=== PATIENT | male | born 1960 | race African-American/Black ===

== ENCOUNTER 2017-08-04 06:28 | Emergency (ER) | payer OTHER ==
[2017-08-04 06:36] VITALS: BP 105/67; BMI 17.8
--- NOTE | 2017-08-04 06:53 | DR.GENAD ---
HPI - PCP Primary Care Physician: NFNadeem - HPI Comment HPI Comment: PATIENT HAVE SURGERY ON BOTH KNEES WITH SCREWS PLACE. LEFT HIP PROGRESSIVELY HURTING. WORSE THIS AM. NO TRAUMA. - Complaint/Symptoms Chief Complaint Doctors Comments: LEFT HIP PAIN. Chief Complaint:: PT C/O LT HIP PAIN. PT STATES HE HAS HAD SURGERY ON THIS HIP IN THE PAST. PT STATES HE HAS BEEN HAVING PAIN FOR A WHILE BUT THIS AM HE CAN BARELY WALK. - Nurses notes reviewed Nurses Notes Review: Yes - Source History Provided: Patient - Mode of Arrival Mode of Arrival: Ambulatory - Timing Onset of Chief Complaint: 08/04/17 Came on: Gradually - Duration Duration: Constant Duration: Days - Severity Severity: Moderate PMH - PMH Past Medical History: Yes Past Medical History: Hypertension Past Medical History Comment: EMPHYSEMA Past Surgical History: Yes Surgical History: Ortho Surgery - Family History History of Family Medical Conditions: Yes Family Medical History: Diabetes Mellitus - Social History Does patient currently use any type of tobacco product: No Have you used tobacco products in the last 12 months: No Type of Tobacco Use: None Does any household member use tobacco: No Alcohol Use: Occasionally Do you use any recreational Drugs:: No Lives With: Family Lives Where: Home - infectious screening In the last 2 months have you had wt loss of >10#?: NO Have you had fever, night sweats or hemotysis?: No Have you traveled outside the country in the last 6 months?: No Isolation: Standard ROS - Review of Systems Constitutional: No Symptoms Reported Eyes: No Symptoms Reported ENTM: No Symptoms Reported Respiratoy: No Symptoms Reported Cardiovascular: No Symptoms Reported Gastrointestinal/Abdominal: No Symptoms Reported Genitourinary: No Symptoms Reported Neurological: No Symptoms Reported Musculoskeletal: Left, Hip Integumentary: No Symptoms Reported Hematologic/Lymphatic: No Symptoms Reported Endocrine: No Symptoms Reported PE - Vital Signs Vitals: Temperature 97.9 F Pulse Rate 89 Respiratory Rate 20 Blood Pressure [Left Arm] 116/68 Blood Pressure [Right Arm] 114/71 Blood Pressure 105/67 O2 Sat by Pulse Oximetry 98 - General Limitations: No Limitations General Appearance: Alert - Head Head Exam: Normal Inspection - Eyes Eye exam: Normal Appearance - ENT ENT Exam: Normal External Ear Exam External Ear Exam: Normal External Inspection TM/Canal Exam: Bilateral Normal Nose Exam: Normal Nose Exam Mouth Exam: Normal Inspection Throat Exam: Normal Inspection - Neck Neck Exam: Normal Inspection - Chest Chest Inspection: Symmetric Chest Wall Rise - Respiratory Respiratory Exam: Normal Lung Sounds Bilat Respiratory Exam: Bilateral Clear to Auscultation - Cardiovascular Cardiovascular Exam: Regular Rate, Normal Rhythm, Normal Heart Sounds - Abdominal Exam Abdominal Exam: Normal Bowel Sounds, Soft. negative: Tenderness - Extremities Extremities Exam: Tenderness (LT HIP TENDER. YINKA) - Back Back Exam: Normal Inspection - Neurologic Neurological Exam: Alert, Oriented X3 - Psychiatric Psychiatric Exam: Normal Affect, Normal Mood - Skin Skin Exam: Normal Color MDM - Differential Diagnosis Differential Diagnosis: LEFT HIP SPRAIN, STRAIN, FRACTURE, PROTHESIS MALFUNCTION Course - Treatment Treatment: SEE ORDERS. IM MEDS IN ED. PAIN IMPROVING. - Education/Counseling Education/Counseling: Patient, Education Educated On: Treatment, Diagnosis, Needs for Follow Up ROR - XRAY XRAY Interpreted by: Radiologist XRAY Findings: REPORT DISCUSS WITH PATIENT - Diagnosis Discharge Problem: Left hip pain, Avascular necrosis of bone of left hip, Degenerative arthritis of hip - Discharge Plan Condition: Stable Prescriptions: Cyclobenzaprine HCl [FLEXERIL 10 MG *] 10 mg PO TID PRN #20 tab PRN Reason: Ibuprofen [MOTRIN TAB 800 MG *] 800 mg PO Q8H PRN #20 tab PRN Reason: Pain/Inflammation Tramadol HCl 50 mg PO Q8H #15 tablet - Follow ups/Referrals Follow ups/Referrals: NFD,None [Primary Care Provider] - 3 days - Instructions Instructions: Osteoarthritis, Avascular Necrosis, Joint Pain, [id number] Additional Instructions: RETURN TO ED IF WORSE.
[2017-08-04] MEDS ORDERED: TORADOL 60 MG VIAL ONE (07:03)
[2017-08-04] MEDS ORDERED: NORFLEX INJ IM ONE (07:03)
[2017-08-04] MEDS ORDERED: TORADOL 60 MG VIAL IM ONE (07:03)
[2017-08-04] MEDS ORDERED: NORFLEX INJ ONE (07:04)
--- NOTE | 2017-08-04 07:29 | RAD ---
HISTORY: Left hip pain Study: Single view of the pelvis and 1 views of the left hip. Comparison: 10/03/2016 Findings: A single frontal view of the pelvis demonstrates the pelvic ring to be intact. No acute fractures or dislocations. Sacroiliac joints are normal appearance. The femoral heads appear well seated in the a cetabulum. No significant change in appearance of the bilateral ORIF of hip fractures. Severe joint s pace loss involving the left hip with progressive subchondral sclerosis. Possible early femoral head collapse. Impression: 1. Osteoarthritis and possible early AVN of the left hip. 2. Bilateral postsurgical findings. Reported By:
== END 2017-08-04 07:55 | disposition home or self-care (01) ==
LOC: ER 06:28
DX: M87.859 Other osteonecrosis, unspecified femur (principal); M16.12 Unilateral primary osteoarthritis, left hip; M25.552 Pain in left hip
CPT/HCPCS: 73501; 96372; 99282; 99283; J1885; J2360

== ENCOUNTER 2017-09-19 07:51 | Emergency (ER) | payer OTHER ==
[2017-09-19 07:55] VITALS: BP 110/71; BMI 17.1
[2017-09-19] MEDS ORDERED: TORADOL 60 MG VIAL IM ONE (08:20)
[2017-09-19] MEDS ORDERED: TORADOL 60 MG VIAL ONE (08:22)
--- NOTE | 2017-09-19 08:23 | DR.GENAD ---
HPI - PCP Primary Care Physician: [facility] - HPI Comment HPI Comment: Chronic Lt. hip ronald with a 1 week exacebation. He denies trauma. He has been complacent with his routine [facility] at the [facility]. - Complaint/Symptoms Chief Complaint:: PT C/O LT HIP PAIN. PT HAS BEEN HAVING PROBLEMS WITH HIS HIP FOR A WHILE AND [facility] BUT HE [facility] NOT BEEN ABLE TO GET A [facility]. - Nurses notes reviewed Nurses Notes Review: Yes - Source History Provided: Patient - Mode of Arrival Mode of Arrival: Ambulatory - Timing Onset of Chief Complaint: 09/05/17 Came on: Gradually - Modifying Factors Worsens:: prolonged weight bearing Improves:: rest, NSAIDS use PMH - PMH Past Medical History: Yes Past Medical History: Arthritis, Hypertension Past Medical History Comment: B/l Hip fractures Past Surgical History: Yes Surgical History: Ortho Surgery (b/l ORIF of the hips) - Family History History of Family Medical Conditions: Yes Family Medical History: Diabetes Mellitus - Social History Does any household member use tobacco: No Alcohol Use: Occasionally Do you use any recreational Drugs:: No Lives With: Alone Lives Where: Home - infectious screening In the last 2 months have you had wt loss of >10#?: NO Have you had fever, night sweats or hemotysis?: No Have you traveled outside the country in the last 6 months?: No Isolation: Standard ROS - Review of Systems Constitutional: No Symptoms Reported Eyes: No Symptoms Reported ENTM: No Symptoms Reported Respiratoy: No Symptoms Reported Cardiovascular: No Symptoms Reported Gastrointestinal/Abdominal: No Symptoms Reported Genitourinary: No Symptoms Reported Neurological: No Symptoms Reported Musculoskeletal: Joint Pain, Left, Hip Integumentary: No Symptoms Reported Hematologic/Lymphatic: No Symptoms Reported Endocrine: No Symptoms Reported Psychiatric: No Symptoms Reported All Other Systems: Reviewed and Negative PE - Vital Signs Vitals: Temperature 98.0 F Pulse Rate 93 Respiratory Rate 18 Blood Pressure [Left Arm] 116/68 Blood Pressure [Right Arm] 114/71 Blood Pressure 110/71 O2 Sat by Pulse Oximetry 98 - General Limitations: No Limitations General Appearance: Alert, In No Apparent Distress - Head Head Exam: Normal Inspection - Eyes Eye exam: Normal Appearance - ENT ENT Exam: Normal Exam External Ear Exam: Normal External Inspection TM/Canal Exam: Bilateral Normal Nose Exam: Normal Nose Exam Mouth Exam: Normal Inspection Throat Exam: Normal Inspection - Neck Neck Exam: Normal Inspection - Chest Chest Inspection: Normal Inspection - Respiratory Respiratory Exam: Normal Lung Sounds Bilat - Cardiovascular Cardiovascular Exam: Regular Rate, Normal Rhythm - Abdominal Exam Abdominal Exam: Normal Inspection, Normal Bowel Sounds, Soft - Extremities Extremities Exam: Normal Inspection, Tenderness (Lt. hip. SLR test and pelvic rock are positive on the lt. hip. ) - Back Back Exam: Normal Inspection - Neurologic Neurological Exam: Alert, Oriented X3, CN II-XII Intact - Psychiatric Psychiatric Exam: Normal Affect, Normal Mood - Skin Skin Exam: Warm, Dry, Intact, Normal Color [facility] - Additional Information Additional Information Obtained From: Old Records (Pelvic x-ray of 08/04/17 reviewed.) Course - Education/Counseling Education/Counseling: Patient Educated On: Treatment, Diagnosis, Prognosis, Needs for Follow Up - Diagnosis Discharge Problem: Degenerative arthritis of hip, Left hip pain - Discharge Plan Disposition: 01 HOME, SELF-CARE Condition: Stable - Follow ups/Referrals Follow ups/Referrals: ,Misc [Primary Care Provider] - 3 days - Instructions
== END 2017-09-19 08:51 | disposition home or self-care (01) ==
LOC: ER 08:03
DX: M16.12 Unilateral primary osteoarthritis, left hip (principal); M25.552 Pain in left hip
CPT/HCPCS: 96372; 99281; 99282; J1885

== ENCOUNTER 2017-10-13 07:09 | Emergency (ER) | payer OTHER ==
[2017-10-13 07:36] VITALS: BP 121/80; BMI 17.2
[2017-10-13] MEDS ORDERED: TORADOL 60 MG VIAL IM ONE (07:55)
[2017-10-13] MEDS ORDERED: TORADOL 60 MG VIAL ONE (07:58)
--- NOTE | 2017-10-13 07:59 | DR.UPM ---
HPI - Time Seen Time seen: 07:55 - PCP Primary Care Physician: NO PRIMARY CARE - Complaint Chief Complaint Doctors Comments: Patient is complaining of left hip pain for the past 2-3 days getting worst today. States he has been working at the [employer] and has been doing a lot of walking and getting up an down and his arthritis is acting up on him and he could not go to work today. states he does not have anything for pain at home. states the pain in his hip is 7 of 10. He denies any rcent trauma. States he has had x-ray of his hip before and it showed arthritis and he does not want one today. He denies problems with his bowels or urine. He denies back pain or hematuria. He denies chest pain or SOB. States he has had hip surgery in 1999. Chief Complaint:: PT STATES " ITS MY LEFT HIP AND ITS MY ARTHRITIS".. - Reviewed Nurses Notes Reviewed: Yes - Source History Provided: Patient - Mode of Arrival Mode of Arrival: Ambulatory - Timing Onset of Chief Complaint: 10/12/17 - Duration Duration: Intermittent Duration: Days - Context History of: None - Severity Pain: Moderate Inability to Void: Moderate - Location Pain Location: None - Modifying Factors Medications: None - Associated Signs and Symptoms Associated Signs and Symptoms: None - Other History Other History: Patient with left hip pain; states problems with his arthritis PMH - PMH Past Medical History: Yes Past Medical History: Arthritis, Hypertension Past Surgical History: Yes Surgical History: Ortho Surgery - Family History History of Family Medical Conditions: Yes Family Medical History: Diabetes Mellitus - Social History Does patient currently use any type of tobacco product: No Have you used tobacco products in the last 12 months: No Type of Tobacco Use: None Does any household member use tobacco: No Alcohol Use: None Do you use any recreational Drugs:: No Lives With: Alone Lives Where: Home - infectious screening In the last 2 months have you had wt loss of >10#?: NO Have you had fever, night sweats or hemotysis?: No Have you traveled outside the country in the last 6 months?: No Isolation: Standard ROS - Review of Systems Constitutional: No Symptoms Reported. negative: See HPI, Chills, Diaphoresis, Fever, Malaise, Weakness, Irritable, Fatigue, Loss of Appetite, Other Eyes: No Symptoms Reported. negative: See HPI, Eye Pain, Blurred Vision, Tearing, Discharge, Photophobia, Diplopia, Other ENTM: No Symptoms Reported. negative: See HPI, Ear Pain, Ear Discharge, Pulling on Ears, Hearing Loss, Nose Pain, Nose Discharge, Epistaxis, Nose Congestion, Mouth Pain, Mouth Swelling, Loose Teeth, Drooling, Throat Pain, Throat Swelling, Ear Foreign Body Respiratoy: No Symptoms Reported. negative: See HPI, Productive Cough, Non- Productive Cough, Moist Cough, Dry Cough, Hacking Cough, Barking Cough, Brassy Cough, Orthopnea, Short of Breath, Stridor, Wheezing, Hemoptysis, Other Cardiovascular: No Symptoms Reported Gastrointestinal/Abdominal: No Symptoms Reported Genitourinary: No Symptoms Reported. negative: See HPI, Discharge, Dysuria, Frequency, Hematuria, Pain, Bleeding, Other Neurological: No Symptoms Reported, Problems Walking (left hip pain). negative : See HPI, Anxiety, Depressed, Emotional Problems, Headache, Numbness, Paresthesia, Pre-existing Deficit, Seizure, Tingling, Tremors, Weakness, Dizziness, Speech Problem, Other Musculoskeletal: No Symptoms Reported, Left, Hip Integumentary: No Symptoms Reported. negative: See HPI, Change in Color, Change in Hair/Nails, Dryness, Lesions, Lumps, Rash, Itching, Wound, Bruises, Juandice, Other Hematologic/Lymphatic: No Symptoms Reported. negative: See HPI, Anemia, Blood Clots, Easy Bleeding, Easy Bruising, Swollen Glands, Lymphadenopathy, Other Endocrine: No Symptoms Reported Psychiatric: No Symptoms Reported. negative: See HPI, Anxiety, Depression, Hallucinations, Excessive crying, Suicidal, Other PE - Vital Signs Vitals: Temperature 97.7 F Pulse Rate 89 Respiratory Rate 22 Blood Pressure [Left Arm] 116/68 Blood Pressure [Right Arm] 114/71 Blood Pressure 121/80 O2 Sat by Pulse Oximetry 99 - General Limitations: No Limitations General Appearance: Alert, In Distress (mild) - Head Head Exam: Normal Inspection, Atraumatic, Normocephalic - Eyes Eye exam: Normal Appearance, PERRL, EOMI. negative: Scleral Icterus, Conjunctival Injection, Nystagmus, Miosis, Mydrasis, Periorbital Swelling, Periorbital Tenderness, Other - ENT ENT Exam: Normal Exam, Normal Oropharynx, Normal External Ear Exam, Mucous Membranes Moist, TM's Normal Bilaterally - Neck Neck Exam: Normal Inspection, Full ROM, Trachea Midline. negative: Tenderness, Meningismus, Lymphadenopathy, Thyromegaly, Other - Chest Chest Inspection: Normal Inspection, Symmetric Chest Wall Rise. negative: Tenderness, Rash, Abscess, Other - Respiratory Respiratory Exam: Normal Lung Sounds Bilat. negative: Accessory Muscle Use, Chest Wall Tenderness, Prolonged Expiratory Phase, Respiratory Distress, Stridor , Other Respiratory Exam: Bilateral Clear to Auscultation - Cardiovascular Cardiovascular Exam: Regular Rate, Normal Rhythm, Normal Heart Sounds. negative : Bradycardia, Tachycardia, Irregular Rhythm, Systolic Murmur, Diastolic Murmur , Rubs, Gallop, Clicks, JVD, +S1, +S2, +S3, +S4, Other - Abdominal Exam Abdominal Exam: Normal Inspection, Normal Bowel Sounds, Soft. negative: Distention, Tenderness, Guarding, Rebound, Rigidity, Dimnished Bowel Sounds, Hyperactive Bowel Sounds, Hypoactive Bowel Sounds, Organomegaly, Trauma, Incision, Ascites, Mass, Bruit, Pulsatile Mass, Hernia, Other Abdominal Tenderness: negative: RUQ, RLQ, LUQ, LLQ, Epigastrium, Suprapubic, Diffuse, Mild, Moderate, Severe, Other - Rectal Rectal Exam: Deferred - Genitourinary Exam: Male: Deferred - Extremities Extremities Exam: Normal Inspection, Full ROM, Tenderness (left hip tender on palpation; good range of motion), Normal Capillary Refill - Back Back Exam: Normal Inspection, Full ROM. negative: Tenderness, (R) CVA Tenderness, (L) CVA Tenderness, Muscle Spasm, Paraspinal Tenderness, Vertebral Tenderness, Rashes, (R) Sciatic Notch Tenderness, (L) Sciatic Notch Tendern, (R ) Straight Leg Raise, (L) Straight Leg Raise, Other - Neurologic Neurological Exam: Alert, Oriented X3, CN II-XII Intact, Normal Gait, Reflexes Normal - Psychiatric Psychiatric Exam: Normal Affect, Normal Mood. negative: Depressed, Agitated, Anxious, Flat Affect, Manic, Homicidal Ideation, Suicidal Ideation, Other - Skin Skin Exam: Warm, Dry, Intact, Normal Color - Diagnosis Discharge Problem: Left hip pain, Degenerative arthritis of hip Osteoarthritis of left hip Qualifiers: Osteoarthritis type: primary Qualified Code(s): M16.12 - Unilateral primary osteoarthritis, left hip - Discharge Plan Disposition: 01 HOME, SELF-CARE Condition: Stable Prescriptions: Acetaminophen/Codeine Tab [TYLENOL w/CODEINE #3 (300 MG/30 MG) *] 1 tab PO Q4- 6H PRN #18 tab PRN Reason: Pain Meloxicam [Mobic Tab 15 mg] 15 mg PO DAILY #30 tab - Follow ups/Referrals Follow ups/Referrals: NFD,None [Primary Care Provider] - 3 days AUGIE HAAS [STAFF PHYSICIAN] - 3 days - Instructions Instructions: Osteoarthritis, Joint Pain
[2017-10-13] MEDS ORDERED: TYLENOL #3 TAB (W/CODEINE) PO ONE ×2 (08:16→08:17)
== END 2017-10-13 08:20 | disposition home or self-care (01) ==
LOC: ER 07:09
DX: M16.12 Unilateral primary osteoarthritis, left hip (principal); M25.552 Pain in left hip
CPT/HCPCS: 96372; 99282; J1885

== ENCOUNTER 2017-11-13 06:53 | Emergency (ER) | payer OTHER ==
[2017-11-13 07:09] VITALS: BP 129/76; BMI 15.8
--- NOTE | 2017-11-13 07:11 | DR.GENAD ---
HPI - HPI Comment HPI Comment: CHRONIC. FLARE UP DUE TO COLD WEATHER. NO TRAUMA. HISTORY ARTHRTIS AND BURSITIS IN SAME HIP. - Complaint/Symptoms Chief Complaint Doctors Comments: LEFT HIP PAIN. - Nurses notes reviewed Nurses Notes Review: Yes - Source History Provided: Patient - Mode of Arrival Mode of Arrival: Ambulatory - Timing Came on: Suddenly - Duration Duration: Constant Duration: Days - Severity Severity: Moderate PMH - PMH Past Medical History: Arthritis, Hypertension Past Surgical History: Yes Surgical History: Ortho Surgery - Family History Family Medical History: Diabetes Mellitus - Social History Do you use any recreational Drugs:: No ROS - Review of Systems Constitutional: No Symptoms Reported Eyes: No Symptoms Reported ENTM: No Symptoms Reported Respiratoy: No Symptoms Reported Cardiovascular: No Symptoms Reported Gastrointestinal/Abdominal: No Symptoms Reported Genitourinary: No Symptoms Reported Neurological: No Symptoms Reported Musculoskeletal: Left, Hip (PAIN) Integumentary: No Symptoms Reported Hematologic/Lymphatic: No Symptoms Reported Endocrine: No Symptoms Reported All Other Systems: Reviewed and Negative PE - Vital Signs Vitals: Temperature 97 F Pulse Rate 89 Respiratory Rate 18 Blood Pressure [Left Arm] 116/68 Blood Pressure [Right Arm] 114/71 Blood Pressure 129/76 O2 Sat by Pulse Oximetry 99 - General Limitations: No Limitations General Appearance: Alert - Head Head Exam: Normal Inspection - Eyes Eye exam: Normal Appearance - ENT ENT Exam: Normal External Ear Exam External Ear Exam: Normal External Inspection TM/Canal Exam: Bilateral Normal Nose Exam: Normal Nose Exam Mouth Exam: Normal Inspection Throat Exam: Normal Inspection - Neck Neck Exam: Trachea Midline - Chest Chest Inspection: Symmetric Chest Wall Rise - Respiratory Respiratory Exam: Normal Lung Sounds Bilat Respiratory Exam: Bilateral Rhonchi, Lower Rhonchi - Cardiovascular Cardiovascular Exam: Regular Rate, Normal Rhythm, Normal Heart Sounds - Abdominal Exam Abdominal Exam: Normal Bowel Sounds, Soft. negative: Tenderness - Extremities Extremities Exam: Tenderness (LEFT HIP TENDER. YINKA.) - Back Back Exam: Paraspinal Tenderness - Neurologic Neurological Exam: Alert, Oriented X3 - Psychiatric Psychiatric Exam: Normal Affect, Normal Mood - Skin Skin Exam: Normal Color MDM - Differential Diagnosis Differential Diagnosis: LEFT HIP PAIN, ARTHRITIS, BURSITIS Course - Treatment Treatment: SEE ORDERS. IM MED IN ED. PAIN DECREASING. - Reevaluation 1st: Improved - Education/Counseling Education/Counseling: Patient, Education Educated On: Treatment, Diagnosis - Diagnosis Discharge Problem: Arthritis Bursitis Qualifiers: Bursitis location: unspecified site Qualified Code(s): M71.9 - Bursopathy, unspecified - Discharge Plan Condition: Stable Prescriptions: Cyclobenzaprine HCl [FLEXERIL 10 MG *] 10 mg PO TID #20 tab Meloxicam [Mobic Tab 15 mg] 15 mg PO DAILY #30 tab - Follow ups/Referrals Follow ups/Referrals: NFD,None [Primary Care Provider] - 3 days - Instructions Instructions: Bursitis, [id number], Musculoskeletal Pain Additional Instructions: RETURN TO ED IF WORSE.
[2017-11-13] MEDS ORDERED: TORADOL 60 MG VIAL IM ONE (07:12)
[2017-11-13] MEDS ORDERED: NORFLEX INJ IM ONE (07:12)
[2017-11-13] MEDS ORDERED: PEPCID TAB 20 MG PO ONE (07:18)
[2017-11-13] MEDS ORDERED: TORADOL 60 MG VIAL ONE (07:32)
[2017-11-13] MEDS ORDERED: PEPCID TAB 20 MG ONE (07:33)
[2017-11-13] MEDS ORDERED: NORFLEX INJ ONE (07:33)
== END 2017-11-13 08:16 | disposition home or self-care (01) ==
LOC: ER 06:53
DX: M19.90 Unspecified osteoarthritis, unspecified site (principal); M71.9 Bursopathy, unspecified
CPT/HCPCS: 96372; 99282; J1885; J2360

== ENCOUNTER 2017-12-09 19:24 | Emergency (ER) | payer OTHER ==
[2017-12-09 19:30] VITALS: BMI 24.3
--- NOTE | 2017-12-09 20:00 | DR.GENAD ---
HPI - PCP Primary Care Physician: NFD - Complaint/Symptoms Chief Complaint Doctors Comments: Patient is under the influence of alcohol he states that he fell and injured his upper lip. Chief Complaint:: PT FELL WHILE PLAYING BASKETBALL AND BUSTED HIS TOP LIP ABRASION AND SWELLING TO LT CHEEK - Source History Provided: Patient - Mode of Arrival Mode of Arrival: Ambulatory - Timing Onset of Chief Complaint: 12/02/17 PMH - PMH Past Medical History: No Past Medical History: Arthritis, Hypertension Past Surgical History: Yes Surgical History: Ortho Surgery - Family History History of Family Medical Conditions: Yes Family Medical History: Diabetes Mellitus - Social History Alcohol Use: Heavy Do you use any recreational Drugs:: No Lives With: Family Lives Where: Home - infectious screening In the last 2 months have you had wt loss of >10#?: NO Have you had fever, night sweats or hemotysis?: No Have you traveled outside the country in the last 6 months?: No Isolation: Standard ROS - Review of Systems Constitutional: No Symptoms Reported Eyes: No Symptoms Reported ENTM: No Symptoms Reported, Loose Teeth Respiratoy: No Symptoms Reported Cardiovascular: No Symptoms Reported Gastrointestinal/Abdominal: No Symptoms Reported Genitourinary: No Symptoms Reported Neurological: No Symptoms Reported Musculoskeletal: No Symptoms Reported Integumentary: No Symptoms Reported Hematologic/Lymphatic: No Symptoms Reported Endocrine: No Symptoms Reported Psychiatric: No Symptoms Reported All Other Systems: Reviewed and Negative PE - Vital Signs Vitals: Temperature 98.6 F Pulse Rate 98 Respiratory Rate 18 Blood Pressure [] 116/68 Blood Pressure [] 114/71 Blood Pressure 147/86 O2 Sat by Pulse Oximetry 100 - General Limitations: Physical Limitation General Appearance: In No Apparent Distress - Head Head Exam: Normal Inspection, Other (lacerated upper lip left side) - Eyes Eye exam: Normal Appearance - ENT ENT Exam: Normal Exam External Ear Exam: Normal External Inspection TM/Canal Exam: Bilateral Normal Nose Exam: Normal Nose Exam Mouth Exam: Normal Inspection Throat Exam: Normal Inspection - Neck Neck Exam: Normal Inspection - Chest Chest Inspection: Normal Inspection - Respiratory Respiratory Exam: Normal Lung Sounds Bilat Respiratory Exam: Bilateral Clear to Auscultation - Cardiovascular Cardiovascular Exam: Regular Rate, Normal Rhythm - Abdominal Exam Abdominal Exam: Normal Inspection, Normal Bowel Sounds Abdominal Tenderness: negative: RUQ, RLQ, LUQ, LLQ, Epigastrium, Suprapubic, Diffuse, Mild, Moderate, Severe, Other - Extremities Extremities Exam: Normal Inspection - Back Back Exam: Normal Inspection, Full ROM - Neurologic Neurological Exam: Alert, Oriented X3, CN II-XII Intact - Psychiatric Psychiatric Exam: Normal Affect, Normal Mood - Skin Skin Exam: Warm, Dry, Intact (Upper lip lacerated in a v pattern through and through) ROR - XRAY XRAY Interpreted by: Radiologist (CT Facial Bones: The frontal sinuses are clear. The zygomatic arches are intact. The orbits are intact. The nasal bone slightly deformed and angulated with a minimally displaced fracture along the right side of the nasal bone anteriorly. The mandible appears intact and in good position. There are no air flfuid levels. There is moderate nasal septal deviation to the left. The surrounding soft tissues are unremarkable.) Procedures - Laceration/Wound Repair Left Face Wound Length (cm): 4 Wound's Depth, Shape: Stellate Wound Explored: clean Betadine Prep?: No Anesthesia: 2% Lidocaine w/ Epi Wound Debrided: minimal Suture Size/Type: 3:0, Vicryl Number of Sutures: 9 Layer Closure?: No - Diagnosis Discharge Problem: Chronic sinusitis of both maxillary sinuses Laceration of upper lip, complicated Qualifiers: Encounter type: initial encounter Qualified Code(s): S01.511A - Laceration without foreign body of lip, initial encounter - Discharge Plan Condition: Stable - Follow ups/Referrals Follow ups/Referrals: NFD,None [Primary Care Provider] - 3 days - Instructions
[2017-12-09] MEDS ORDERED: XYLOCAINE 2% and EPINEPHRINE 1:100,000 ONE (20:14)
--- NOTE | 2017-12-09 21:21 | CT ---
Indication: Fall with left facial swelling Exam: CT facial bones without contrast Technique: Axial spiral images were obtained from the level above the frontal sinuses through the man dible and reconstructed in the coronal and sagittal planes. Automated dose control was utilized. Findings: The frontal sinuses are clear. The zygomatic arches are intact. The orbits are intact. The nasal bone slightly deformed and angulated with a minimally displaced fracture along the right side o f the nasal bone anteriorly. The mandible appears intact and in good position. There are no air-fluid levels. There is moderate nasal septal deviation to the left. The surrounding soft tissues are unrem arkable. Impression: Slightly displaced nasal bone fracture on the right. Moderate nasal septal deviation and probable old fracture deformity of the nasal bone. Mild chronic sinusitis. Reported By:
[2017-12-09 21:44] VITALS: BP 142/84
== END 2017-12-09 21:50 | disposition home or self-care (01) ==
LOC: ER 19:24
PROC: 0WQ2XZZ Repair Face, External Approach (ICD-10-PCS; principal; 2017-12-09)
DX: S01.511A Laceration without foreign body of lip, initial encounter (principal); S02.2XXA Fracture of nasal bones, initial encounter for closed fracture; J32.0 Chronic maxillary sinusitis; W19.XXXA Unspecified fall, initial encounter; Y93.67 Activity, basketball; Y92.89 Other specified places as the place of occurrence of the external cause
CPT/HCPCS: 12013; 70486; 99282; 99283; J2001

== ENCOUNTER 2017-12-31 06:12 | Emergency (ER) | payer OTHER ==
[2017-12-31 06:20] VITALS: BP 116/77; BMI 15.8
--- NOTE | 2017-12-31 07:39 | DR.GENAD ---
HPI - PCP Primary Care Physician: nfd - Complaint/Symptoms Chief Complaint Doctors Comments: Patient had repair of left upper lip with through and through laceratin s/p a fall. He had 9,3-[address] s/p approximation of don border. The lip has good healing with a piece of suture extending. Chief Complaint:: Patient reports recent fall and laceration to top lip. Patient states pain to upper lip. It is noted that patient was seen in our ER on 12/09/17 for a fall with laceration repair. Stitches are noted to upper lip. - Source History Provided: Patient - Mode of Arrival Mode of Arrival: Ambulatory - Timing Onset of Chief Complaint: 12/23/17 PMH - PMH Past Medical History: Yes Past Medical History: Arthritis, Hypertension Past Surgical History: Yes Surgical History: Ortho Surgery - Family History History of Family Medical Conditions: Yes Family Medical History: Diabetes Mellitus - Social History Type of Tobacco Use: None Alcohol Use: Occasionally Do you use any recreational Drugs:: No Lives With: Family Lives Where: Home - infectious screening In the last 2 months have you had wt loss of >10#?: NO Have you had fever, night sweats or hemotysis?: No Have you traveled outside the country in the last 6 months?: No Isolation: Standard ROS - Review of Systems Constitutional: No Symptoms Reported Eyes: No Symptoms Reported ENTM: No Symptoms Reported Respiratoy: No Symptoms Reported Cardiovascular: No Symptoms Reported Gastrointestinal/Abdominal: No Symptoms Reported Genitourinary: No Symptoms Reported Neurological: No Symptoms Reported Musculoskeletal: No Symptoms Reported Integumentary: No Symptoms Reported Hematologic/Lymphatic: No Symptoms Reported Endocrine: No Symptoms Reported Psychiatric: No Symptoms Reported All Other Systems: Reviewed and Negative PE - Vital Signs Vitals: Temperature 98.2 F Pulse Rate 92 Respiratory Rate 20 Blood Pressure [Left Arm] 142/84 Blood Pressure [Right Arm] 114/71 Blood Pressure 116/77 O2 Sat by Pulse Oximetry 98 - General General Appearance: Alert, In No Apparent Distress - Head Head Exam: Normal Inspection, Atraumatic - Eyes Eye exam: Normal Appearance, PERRL, EOMI - ENT ENT Exam: Normal Exam, Normal Oropharynx TM/Canal Exam: Bilateral Normal Nose Exam: Normal Nose Exam Mouth Exam: Normal Inspection Throat Exam: Normal Inspection - Neck Neck Exam: Normal Inspection - Chest Chest Inspection: Normal Inspection - Respiratory Respiratory Exam: Normal Lung Sounds Bilat Respiratory Exam: Bilateral Clear to Auscultation - Cardiovascular Cardiovascular Exam: Regular Rate, Normal Rhythm - Abdominal Exam Abdominal Exam: Normal Inspection Abdominal Tenderness: negative: RUQ, RLQ, LUQ, LLQ, Epigastrium, Suprapubic, Diffuse, Mild, Moderate, Severe, Other - Extremities Extremities Exam: Normal Inspection, Full ROM - Back Back Exam: Normal Inspection, Full ROM - Neurologic Neurological Exam: Alert, Oriented X3, CN II-XII Intact - Psychiatric Psychiatric Exam: Normal Affect - Skin Skin Exam: Warm, Dry - Diagnosis Discharge Problem: s/p lip laceration - Discharge Plan Condition: Stable - Follow ups/Referrals Follow ups/Referrals: NFD,None [Primary Care Provider] - 3 days - Instructions
== END 2017-12-31 07:50 | disposition home or self-care (01) ==
LOC: ER 06:12
DX: Z48.02 Encounter for removal of sutures (principal)
CPT/HCPCS: 99282

== ENCOUNTER 2018-02-26 05:05 | Emergency (ER) | payer OTHER ==
[2018-02-26 05:19] VITALS: BP 86/57; BMI 18.4
--- NOTE | 2018-02-26 05:46 | DR.GENAD ---
HPI - PCP Primary Care Physician: SHASHANK IN [place] - Complaint/Symptoms Chief Complaint Doctors Comments: Patient presents with complaint of left hip pain due to arthritis. He states that he has recurrent left hip pain and is not on any medication. His pain is 8/10, sharp, aggravated by motion. Chief Complaint:: LT HIP PAIN - Source History Provided: Patient - Mode of Arrival Mode of Arrival: Ambulatory - Timing Onset of Chief Complaint: 02/25/18 PMH - PMH Past Medical History: Yes Past Medical History: Arthritis, Hypertension Past Surgical History: Yes Surgical History: Ortho Surgery Past Surgical History Comment: X2 HIP REPLACEMENTS- DR SQUIRES. LUNG BIOPSY - Family History History of Family Medical Conditions: No Family Medical History: Diabetes Mellitus - Social History Does patient currently use any type of tobacco product: No Have you used tobacco products in the last 12 months: No Type of Tobacco Use: None Alcohol Use: Occasionally Do you use any recreational Drugs:: No Lives With: Alone Lives Where: Home - infectious screening In the last 2 months have you had wt loss of >10#?: NO Have you had fever, night sweats or hemotysis?: No Have you traveled outside the country in the last 6 months?: No Isolation: Standard ROS - Review of Systems Eyes: No Symptoms Reported ENTM: No Symptoms Reported Respiratoy: No Symptoms Reported Cardiovascular: No Symptoms Reported Gastrointestinal/Abdominal: No Symptoms Reported Genitourinary: No Symptoms Reported Neurological: No Symptoms Reported Musculoskeletal: Hip (left) Integumentary: No Symptoms Reported Hematologic/Lymphatic: No Symptoms Reported Endocrine: No Symptoms Reported Psychiatric: No Symptoms Reported All Other Systems: Reviewed and Negative PE - Vital Signs Vitals: Temperature 97.6 F Pulse Rate 90 Respiratory Rate 20 Blood Pressure [Left Arm] 142/84 Blood Pressure [Right Arm] 114/71 Blood Pressure 86/57 O2 Sat by Pulse Oximetry 98 - General General Appearance: Alert, In No Apparent Distress - Head Head Exam: Normal Inspection, Atraumatic - Eyes Eye exam: Normal Appearance, PERRL, EOMI - ENT ENT Exam: Normal Exam External Ear Exam: Normal External Inspection TM/Canal Exam: Bilateral Normal Nose Exam: Normal Nose Exam Mouth Exam: Normal Inspection Throat Exam: Normal Inspection - Neck Neck Exam: Normal Inspection - Chest Chest Inspection: Normal Inspection, Symmetric Chest Wall Rise - Respiratory Respiratory Exam: Normal Lung Sounds Bilat Respiratory Exam: Bilateral Clear to Auscultation - Cardiovascular Cardiovascular Exam: Regular Rate, Normal Rhythm - Abdominal Exam Abdominal Exam: Normal Inspection, Normal Bowel Sounds Abdominal Tenderness: negative: RUQ, RLQ, LUQ, LLQ, Epigastrium, Suprapubic, Diffuse, Mild, Moderate, Severe, Other - Extremities Extremities Exam: Normal Inspection, Other (admits to pain with adduction of left hip) - Back Back Exam: Normal Inspection, Full ROM - Neurologic Neurological Exam: Alert, Oriented X3, CN II-XII Intact - Psychiatric Psychiatric Exam: Normal Affect - Skin Skin Exam: Warm, Dry, Intact - Diagnosis Discharge Problem: Osteoarthritis (arthritis due to wear and tear of joints) Qualifiers: Osteoarthritis location: hip Osteoarthritis type: unspecified Laterality: left Qualified Code(s): M16.12 - Unilateral primary osteoarthritis, left hip - Discharge Plan Condition: Stable - Follow ups/Referrals Follow ups/Referrals: NFD,None [Primary Care Provider] - 3 days - Instructions
[2018-02-26] MEDS ORDERED: TORADOL 60 MG VIAL ONE (05:47)
[2018-02-26] MEDS ORDERED: TORADOL 60 MG VIAL IM ONE (05:47)
== END 2018-02-26 05:55 | disposition home or self-care (01) ==
LOC: ER 05:05
DX: M16.12 Unilateral primary osteoarthritis, left hip (principal)
CPT/HCPCS: 96372; 99282; J1885